=== PATIENT | female | born 1970 | race Hispanic/Latino ===

== ENCOUNTER 2018-12-24 10:50 | Outpatient (CLI) | payer BC | END 2018-12-24 10:51 | disposition home or self-care (01) | LOC: CTENTCT 10:50 | PROVIDERS: ATTEND Otolaryngology Plastic Surgery within the Head & Neck | DX: J01.80 Other acute sinusitis (principal) | CPT/HCPCS: 70486 ==

== ENCOUNTER 2019-03-08 22:27 | Emergency (ER) | payer BC ==
--- NOTE | 2019-03-08 23:39 | RAD ---
XR Tib Fib Lt Leg 2 View HISTORY: Soft tissue swelling. COMPARISON: None. FINDINGS: There are no bony findings noted. I do not see any air within the soft tissues or radiopaqu e foreign bodies. IMPRESSION: Unremarkable left tib-fib.
== END 2019-03-08 23:51 | disposition home or self-care (01) ==
LOC: ERS 22:27
DX: L53.9 Erythematous condition, unspecified (principal)